=== PATIENT | male | born 1955 | race Caucasian/White ===

== ENCOUNTER → 2016-03-01 | Outpatient (CLI) | payer OTHER ==
[~2016-03-01] MED LIST: ASPI-321 OR; BNC/20125 PO
[2016-03-01 01:00] LABS: BASO % 0.4 %; BASO ABS # 0.03 K/uL (0-0.2); COMPLETE YES; HEMATOCRIT 46.5 % (42-52); IG% 0.7 %; LYMPH % 26.5 %; LYMPH ABS # 2.13 K/uL (1.2-3.4); MEAN CELL VOLUME 84.7 fL (80-100); MEAN CORPUSCULAR HEMOGLOBIN 30.8 pg (25-34); MEAN CORPUSCULAR HGB CONC 36.3 g/dl (32-36); MEAN PLATELET VOLUME 11.2 fL (7.4-10.4); MONO % 10.8 %; NEUT % 58.6 %; PLATELET COUNT 238 K/uL (130-400); RED BLOOD COUNT 5.49 M/uL (4.7-6.1); WHITE BLOOD COUNT 8.04 K/uL (4.8-10.8)
[2016-03-01 01:18] LABS: ALT/SGPT 56 U/L (12-78); AST/SGOT 29 U/L (15-37); BLOOD UREA NITROGEN 26 mg/dl (7-18); BUN/CREATININE RATIO 18.7 (10-20); CALCIUM 9.2 mg/dl (8.5-10.1); CARBON DIOXIDE 28 mmol/L (21-32); CHLORIDE 104 mmol/L (98-107); GLUCOSE 94 mg/dl (70-99); POTASSIUM 4.1 mmol/L (3.5-5.1); SODIUM 139 mmol/L (136-145)
[2016-03-01 01:29] LABS: ALB/GLOB RATIO 1.3 (0.9-2); ALKALINE PHOSPHATASE 73 U/L (45-117); CHOLESTEROL 207 mg/dl (0-200); CHOLESTEROL/HDL RATIO 5.4; HDL CHOLESTEROL 38 mg/dl; LDL CHOLESTEROL CALCULATED 134 mg/dl; PROSTATE SPECIFIC ANTIGEN 0.422 ng/ml (0.000-4.000); TRIGLYCERIDES 173 mg/dl (0-150); VERY LOW DENSITY LIPOPROT CALC 35 mg/dl
[2016-03-01 02:09] LABS: LYME DISEASE AB IGG NEG (NEG); LYME DISEASE AB IGM NEG (NEG)
== END | disposition home or self-care (01) ==
LOC: C.LAB 00:28
PROVIDERS: ATTEND Nurse Practitioner
DX: E03.9 Hypothyroidism, unspecified (principal); I10 Essential (primary) hypertension; N40.0 Benign prostatic hyperplasia without lower urinary tract symptoms; E78.5 Hyperlipidemia, unspecified

== ENCOUNTER → 2017-03-04 | Outpatient (CLI) | payer OTHER ==
[2017-03-04 01:44] LABS: BASO % 0.8 %; BASO ABS # 0.06 K/uL (0-0.2); EOS % 2.5 %; EOS ABS # 0.19 K/uL (0-0.5); HEMATOCRIT 47.2 % (42-52); IG# 0.12 K/uL (0.00-0.02); LYMPH % 32.6 %; LYMPH ABS # 2.46 K/uL (1.2-3.4); MEAN PLATELET VOLUME 10.8 fL (7.4-10.4); MONO % 9.5 %; MONO ABS # 0.72 K/uL (0.11-0.59); PLATELET COUNT 276 K/uL (130-400); RED CELL DISTRIBUTION WIDTH CV 12.9 % (11.5-14.5); RED CELL DISTRIBUTION WIDTH SD 40.7 fL (36.4-46.3); WHITE BLOOD COUNT 7.55 K/uL (4.8-10.8)
[2017-03-04 02:04] LABS: ALBUMIN 4.2 gm/dl (3.4-5.0); ALT/SGPT 47 U/L (12-78); AST/SGOT 23 U/L (15-37); BLOOD UREA NITROGEN 24 mg/dl (7-18); CALCIUM 9.3 mg/dl (8.5-10.1); CARBON DIOXIDE 27 mmol/L (21-32); CREATININE 1.28 mg/dl (0.60-1.40); GLUCOSE 91 mg/dl (70-99); SODIUM 138 mmol/L (136-145)
[2017-03-04 02:09] LABS: ALKALINE PHOSPHATASE 79 U/L (45-117); CHOLESTEROL 173 mg/dl (0-200); LDL CHOLESTEROL CALCULATED 101 mg/dl; TOTAL PROTEIN 7.8 gm/dl (6.4-8.2)
== END | disposition home or self-care (01) ==
LOC: C.LAB 00:40
PROVIDERS: ATTEND Nurse Practitioner
DX: I10 Essential (primary) hypertension (principal); E03.9 Hypothyroidism, unspecified; E78.00 Pure hypercholesterolemia, unspecified; E55.9 Vitamin D deficiency, unspecified; Z12.5 Encounter for screening for malignant neoplasm of prostate

== ENCOUNTER → 2017-03-25 | Outpatient (CLI) | payer OTHER ==
--- NOTE | 2017-03-25 13:34 | DIAGNOSTIC IMAGING REPORT ---
DUPLEX RENAL ARTERY, ART DOP LOWER EXT BILAT, ULTRASOUND EXAM AAA SCREEN CLINICAL HISTORY: 61 years-old Male presenting with AAA,RENAL ARTERY STENOSIS. TECHNIQUE: Real-time grayscale and color and spectral Doppler ultrasound imaging of the abdominal aorta and kidneys was performed. COMPARISON: None. FINDINGS: Right kidney: Intrarenal resistive indices range from 0.66 to 0.7. Normal intrarenal arterial waveforms. Renal artery patent with peak systolic velocity 119 cm/s proximally, 92 cm/s in the midportion, and 58 cm/s distally. Renal vein patent. Normal echogenicity. Right kidney measures 11.4 cm. No hydronephrosis. No convincing evidence of calculus or mass. Left kidney: Intrarenal resistive indices range from 0.64 to 0.67. Normal intrarenal arterial waveforms. Renal artery patent with peak systolic velocity 102 cm/s proximally, 112 cm/s in the midportion, and 56 cm/s distally. Renal vein patent. Normal echogenicity. Left kidney measures 11.8 cm. No hydronephrosis. No convincing evidence of calculus or mass. Abdominal aorta: Patent. Peak systolic velocity 103 cm/s. Proximal aorta: Patent. Transverse dimension 2.2 x 2.2 cm. Mid aorta: Patent. Transverse dimension 2.1 x 2.2 cm. Distal aorta: Patent. Transverse dimension 2.1 x 2.0 cm. Right iliac artery: Patent. Transverse dimension 1.3 x 1.3 cm. Left iliac artery: Patent. Transverse dimension 1.1 x 1.1 cm. Ratio of right renal artery PSV/aortic PSV: 1.16. Ratio of left renal artery PSV/aortic PSV: 1.09. Other: None. Reference ranges: Normal main renal artery peak systolic velocity less than 180 cm/s. Ratio of renal artery PSV to aortic PSV less than 3.5 equates to normal or less than 60% stenosis. IMPRESSION: 1. No evidence of renal artery stenosis. 2. No evidence of abdominal aortic aneurysm. Electronically signed by: Ike Schumacher M.D. 03/25/2017 1:33 PM Dictated Date/Time: 03/25/2017 1:27 PM
== END | disposition home or self-care (01) ==
LOC: C.ULTR 11:14
PROVIDERS: ATTEND Family Medicine
DX: I73.9 Peripheral vascular disease, unspecified (principal); I71.4 Abdominal aortic aneurysm, without rupture; I70.1 Atherosclerosis of renal artery